=== PATIENT | female | born 1980 ===

== ENCOUNTER 2018-05-24 06:44 | Day surgery (SDC) | payer OTHER | END 2018-05-24 09:45 | disposition home or self-care (01) | LOC: AMB-ENDOS 06:44 | DX: K21.0 Gastro-esophageal reflux disease with esophagitis (principal); K44.9 Diaphragmatic hernia without obstruction or gangrene ==

== ENCOUNTER 2022-07-19 08:28 | Outpatient (CLI) | payer OTHER | END 2022-07-19 10:15 | disposition home or self-care (01) | LOC: PRENATAL 08:28 | PROVIDERS: ATTEND Obstetrics & Gynecology Maternal & Fetal Medicine | DX: O36.80X0 Pregnancy with inconclusive fetal viability, not applicable or unspecified (principal); O09.529 Supervision of elderly multigravida, unspecified trimester; O99.891 Other specified diseases and conditions complicating pregnancy; O34.219 Maternal care for unspecified type scar from previous cesarean delivery; Z3A.11 11 weeks gestation of pregnancy ==

== ENCOUNTER 2022-11-16 14:05 | Outpatient (CLI) | payer OTHER | END 2022-11-16 15:20 | disposition home or self-care (01) | LOC: PRENATAL 14:05 | PROVIDERS: ATTEND Obstetrics & Gynecology Maternal & Fetal Medicine | DX: O26.849 Uterine size-date discrepancy, unspecified trimester (principal); O34.219 Maternal care for unspecified type scar from previous cesarean delivery; O09.529 Supervision of elderly multigravida, unspecified trimester; Z3A.28 28 weeks gestation of pregnancy ==

== ENCOUNTER 2022-12-19 17:38 | Outpatient (CLI) | payer OTHER | END 2022-12-20 21:02 | disposition home or self-care (01) | LOC: OBS/DEL 17:38 | PROVIDERS: ATTEND Student in an Organized Health Care Education/Training Program | DX: O13.3 Gestational [pregnancy-induced] hypertension without significant proteinuria, third trimester (principal); O09.523 Supervision of elderly multigravida, third trimester; Z3A.33 33 weeks gestation of pregnancy ==

== ENCOUNTER → 2022-12-19 | Emergency (ER) | payer OTHER ==
[~2022-12-19] VITALS: Ht 165.1 cm; Wt 78.0 kg
== END | disposition home or self-care (01) ==
LOC: ER 15:02
DX: O13.3 Gestational [pregnancy-induced] hypertension without significant proteinuria, third trimester (principal); Z3A.37 37 weeks gestation of pregnancy; Z98.84 Bariatric surgery status; G40.909 Epilepsy, unspecified, not intractable, without status epilepticus

== ENCOUNTER 2022-12-29 11:54 | Inpatient (IN) | payer OTHER ==
[~2022-12-29] VITALS: Ht 167.6 cm; Wt 1.4 kg
[2022-12-29] MEDS ORDERED: PRENATAL TABLE1 EAC1 PO (15:47)
== END 2023-01-01 19:44 | disposition home or self-care (01) | DRG 786 ==
LOC: OBS/DEL 11:54 → OB/GYN 15:18 → LDR 15:18 → O/R 15:18 → OB/GYN 20:01
PROVIDERS: ADMIT Student in an Organized Health Care Education/Training Program; ATTEND Student in an Organized Health Care Education/Training Program
PROC: 4A1HXCZ Monitoring of Products of Conception, Cardiac Rate, External Approach (ICD-10-PCS; 2022-12-29)
PROC: BY4FZZZ Ultrasonography of Third Trimester, Single Fetus (ICD-10-PCS; 2022-12-29)
PROC: 10D00Z1 Extraction of Products of Conception, Low, Open Approach (ICD-10-PCS; principal; 2022-12-29 15:15)
DX: O33.8 Maternal care for disproportion of other origin (principal); O60.14X0 Preterm labor third trimester with preterm delivery third trimester, not applicable or unspecified; O34.212 Maternal care for vertical scar from previous cesarean delivery; O42.013 Preterm premature rupture of membranes, onset of labor within 24 hours of rupture, third trimester; O36.8330 Maternal care for abnormalities of the fetal heart rate or rhythm, third trimester, not applicable or unspecified; O13.4 Gestational [pregnancy-induced] hypertension without significant proteinuria, complicating childbirth; O36.8130 Decreased fetal movements, third trimester, not applicable or unspecified; O26.843 Uterine size-date discrepancy, third trimester; Z3A.34 34 weeks gestation of pregnancy; Z37.0 Single live birth; Z20.822 Contact with and (suspected) exposure to COVID-19